=== PATIENT | female | born 1990 | race Caucasian/White ===

== ENCOUNTER 2024-06-16 18:01 | Emergency (ER) | payer OTHER ==
[~2024-06-16] VITALS: Ht 170.2 cm; Wt 58.1 kg
[2024-06-16 18:20] VITALS: BP 137/74; TEMP 98.8
[2024-06-16 23:16] VITALS: O2SAT 99
== END 2024-06-16 23:17 | disposition home or self-care (01) ==
LOC: ER 18:04
DX: S93.515A Sprain of interphalangeal joint of left lesser toe(s), initial encounter (principal); S20.212A Contusion of left front wall of thorax, initial encounter; W01.0XXA Fall on same level from slipping, tripping and stumbling without subsequent striking against object, initial encounter; Y93.89 Activity, other specified; Y92.89 Other specified places as the place of occurrence of the external cause; Y99.8 Other external cause status
CPT/HCPCS: 71100-TC; 73630-TC